=== PATIENT | male | born 1950 | race Caucasian/White ===

== ENCOUNTER 2019-02-05 07:42 | Outpatient (CLI) | payer MEDICARE, MEDICAID | END 2019-02-05 23:59 | disposition home or self-care (01) | LOC: ROC 07:42 | PROVIDERS: ATTEND Radiology Radiation Oncology | DX: C79.31 Secondary malignant neoplasm of brain (principal); C79.51 Secondary malignant neoplasm of bone; C34.92 Malignant neoplasm of unspecified part of left bronchus or lung; J44.9 Chronic obstructive pulmonary disease, unspecified; M19.90 Unspecified osteoarthritis, unspecified site; I48.91 Unspecified atrial fibrillation; J90 Pleural effusion, not elsewhere classified; Z79.899 Other long term (current) drug therapy; Z91.09 Other allergy status, other than to drugs and biological substances; Z87.891 Personal history of nicotine dependence; Z82.49 Family history of ischemic heart disease and other diseases of the circulatory system | CPT/HCPCS: G0463 ==

== ENCOUNTER 2019-02-13 13:29 | Outpatient (CLI) | payer MEDICARE, MEDICAID ==
[~2019-02-13 13:29] MED LIST: GADOBUTROL 7.5 MMOL/7.5 ML PFS ONE
== END 2019-02-13 23:59 | disposition home or self-care (01) ==
LOC: CFH 13:29
PROVIDERS: ATTEND Radiology Radiation Oncology
DX: C79.31 Secondary malignant neoplasm of brain (principal); C34.90 Malignant neoplasm of unspecified part of unspecified bronchus or lung; G31.89 Other specified degenerative diseases of nervous system
CPT/HCPCS: 70553; A9585

== ENCOUNTER 2019-04-08 09:21 | Outpatient (CLI) | payer MEDICARE, MEDICAID ==
[2019-04-08] MEDS ORDERED: GADOBUTROL 7.5 MMOL/7.5 ML PFS ONE (10:18)
== END 2019-04-08 23:59 | disposition home or self-care (01) ==
LOC: CFH 09:21
PROVIDERS: ATTEND Radiology Radiation Oncology
DX: C79.31 Secondary malignant neoplasm of brain (principal)
CPT/HCPCS: 70553; A9585

== ENCOUNTER 2019-04-09 07:34 | Outpatient (CLI) | payer MEDICARE, MEDICAID | END 2019-04-09 23:59 | disposition home or self-care (01) | LOC: ROC 07:34 | PROVIDERS: ATTEND Radiology Radiation Oncology | DX: C79.31 Secondary malignant neoplasm of brain (principal); C34.90 Malignant neoplasm of unspecified part of unspecified bronchus or lung | CPT/HCPCS: G0463 ==